=== PATIENT | female | born 1995 | race Caucasian/White ===

== ENCOUNTER 2021-03-07 04:11 | Emergency (ER) | payer OTHER ==
[~2021-03-07] VITALS: Ht 167.6 cm; Wt 83.9 kg
[2021-03-07] MEDS ORDERED: IBU800 M1 PO (06:55)
[2021-03-07] MEDS ORDERED: TRAM50 PO (06:55)
== END 2021-03-07 07:29 | disposition home or self-care (01) ==
LOC: ER 04:11
DX: S93.401A Sprain of unspecified ligament of right ankle, initial encounter (principal); S90.31XA Contusion of right foot, initial encounter; Z88.1 Allergy status to other antibiotic agents; Z88.5 Allergy status to narcotic agent; W22.8XXA Striking against or struck by other objects, initial encounter; Y93.89 Activity, other specified
CPT/HCPCS: 73610; 73620; 99283-25; A9270

== ENCOUNTER 2022-07-20 11:03 | Emergency (ER) | payer OTHER ==
[~2022-07-20] VITALS: Ht 167.6 cm; Wt 90.7 kg
[~2022-07-20 11:03] MED LIST: IBU800 M1 PO; TRAM50 PO
== END 2022-07-20 13:40 | disposition left against medical advice (07) ==
LOC: ER 11:03
DX: R07.9 Chest pain, unspecified (principal); Z53.21 Procedure and treatment not carried out due to patient leaving prior to being seen by health care provider
CPT/HCPCS: 71045; 99283-25

== ENCOUNTER 2023-02-06 18:11 | Emergency (ER) | payer OTHER ==
[~2023-02-06] VITALS: Ht 167.6 cm; Wt 90.7 kg
[2023-02-06 18:22] VITALS: BP 148/116
== END 2023-02-06 20:44 | disposition home or self-care (01) ==
LOC: ER 18:11
DX: S06.0X0A Concussion without loss of consciousness, initial encounter (principal); F17.200 Nicotine dependence, unspecified, uncomplicated; W19.XXXA Unspecified fall, initial encounter; Z88.1 Allergy status to other antibiotic agents; Z88.5 Allergy status to narcotic agent
CPT/HCPCS: 70450; A9270

== ENCOUNTER 2025-08-09 21:25 | Emergency (ER) | payer OTHER ==
[~2025-08-09] VITALS: Ht 167.6 cm; Wt 65.8 kg
[2025-08-09 21:51] VITALS: BP 116/83
== END 2025-08-09 23:42 | disposition home or self-care (01) ==
LOC: ER 21:25
DX: S43.402A Unspecified sprain of left shoulder joint, initial encounter (principal); V00.121A Fall from non-in-line roller-skates, initial encounter; F17.200 Nicotine dependence, unspecified, uncomplicated; Z88.1 Allergy status to other antibiotic agents; Z88.5 Allergy status to narcotic agent
CPT/HCPCS: 73030; 99283-25